=== PATIENT | female | born 1980 | race Caucasian/White ===

== ENCOUNTER 2024-10-21 13:21 | Outpatient (AMB) | payer OTHER, SELFPAY ==
--- NOTE | 2024-10-21 13:42 | A.OFFVIS_ITS ---
Intake Visit Reasons: ENP: Migraines Allergies acetaminophen (From Percocet) Allergy (Unknown, Verified 10/21/24 13:57) Unknown oxycodone (From Percocet) Allergy (Unknown, Verified 10/21/24 13:57) Unknown Medication List - Last Reconciled 10/21/24 by Alie Najera CNP cetirizine (Zyrtec) 10 mg PO DAILY norethindrone-e.estradiol-iron 1.5 mg-30 mcg (21)/75 mg (7) ([place] 1.5/30 (28)) 1 tab PO DAILY ubrogepant (Ubrelvy) 100 mg PO DAILY PRN verapamil 80 mg PO TID HPI Comments Details: 44-year-old woman with migraines since childhood that increased during high school years. She recently moved to the area with her partner and two children from [place]. She was treated for migraines in [place] by a neurologist, and was here to continue neurological care. Migraines were typically characterized by an intense, stabbing-type pain behind either eye, and could be associated with photophobia and occasional nausea. Migraines were worse around periods, and she was taking continuous control, which has helped. Other triggers included sleep deprivation, stress, and weather changes. Sleep was okay. Migraines were controlled with verapamil 80mg three times a day. She had few migraines a month that were relieved with Ubrelvy 100mg as needed. No medication side effects. In the past, she tried Maxalt as needed with side effects including tingling in the jaws and Fioricet which caused ?rebound headaches.? She also tried Aimovig and Nurtec as needed, which helped, but were stopped due to insurance reasons. Family history of migraines in her mother. ? [facility] Medical History (Updated 10/21/24 @ 14:04 by Alie Najera CNP) Depression Asthma Chronic migraine without aura Migraine Family History (Updated 10/21/24 @ 13:46 by Alie Najera CNP) Mother Migraine Maternal Grandfather Migraine Paternal Grandfather Alzheimer dementia Review of Systems Const Denies chills, Denies daytime sleepiness, Denies difficulty sleeping, Denies fatigue, Denies fever(s), Denies frequent falls, Reports headache(s), Denies increased appetite, Denies poor appetite, Denies snoring, Denies weakness, Denies weight gain and Denies weight loss Eyes Denies blurry vision, Denies diplopia and Denies loss of vision ENT Denies vertigo, Denies dizziness, Denies dry mouth, Denies otalgia, Reports headache(s), Denies hearing loss, Denies epistaxis, Denies nasal congestion, Denies neck pain, Denies tinnitus, Denies sinus pain and Denies sore throat Card Denies chest pain at rest, Denies chest pain with activity, Denies syncope, Denies leg edema, Denies palpitations, Denies dyspnea and Denies dyspnea on exertion Resp Denies cough, Denies dyspnea, Denies dyspnea on exertion and Denies snoring GI Denies abdominal pain, Denies constipation, Denies heartburn, Denies diarrhea, Denies nausea and Denies vomiting Denies urinary frequency, Denies nipple discharge, Denies urinary incontinence and Denies urinary urgency Musc Denies abnormal gait, Denies back pain, Denies myalgias, Denies arthralgias, Denies neck pain, Denies numbness, Denies stiffness and Denies tingling Skin/Breast Denies breast mass, Denies nipple discharge and Denies rash Neuro Denies abnormal gait, Denies vertigo, Denies dizziness, Denies syncope, Denies frequent falls, Reports headache(s), Denies lack of coordination, Denies loss of vision, Denies memory loss, Denies numbness, Denies Other visual disturbances, Denies restless legs, Denies seizure-like activity, Denies tingling, Denies paresthesias, Denies tremor(s) and Denies weakness Psych Denies anxiety, Denies depression, Denies memory loss, Denies visual hallucinations and Denies hallucinations Endo Denies cold intolerance, Denies fatigue, Denies heat intolerance, Denies polydipsia, Denies polyuria and Denies palpitations Physical Exam Const Other: General Appearance:? normal, in no acute distress. Head:? normocephalic, atraumatic. Eyes:? sclera non-icteric, conjunctiva clear. Ears:? auditory canal clear, tympanic membrane intact, clear. Nose:? no lesions. Oral Cavity:? gums normal, mucosa moist, no lesions. Throat:? clear. Neck/Thyroid:? no cervical lymphadenopathy. Skin:? no rashes, no significant birthmarks. Heart:? S1, S2 normal, no murmurs. Lungs:? clear anteriorly and posteriorly. Chest:? no gross rib deformity, clear to auscultation. Extremities:? no edema. Psych:? alert, oriented, cognitive function intact, cooperative with exam. Neuro Other: Mental Status:?Normal attention, orientation, memory and affect.? Cranial Nerves:?Pupils are equal, round and reactive to light. External occular muscles are intact. Visual pacheco are full. Face is symmetrical. Facial sensations are normal. Tongue is midline. Palate elevates symmetrically. Shoulder shrugging is normal. Hearing to bedside conversation is normal. Motor Examination:?Normal muscle tone, bulk and strength,?Deep tendon reflexes are 2+,?Plantars are flexor.? Sensory Exam:?....? Coordination:?No ataxia,?no titubation.? Gait Exam: Within normal limits. Cerebellar Signs:?Adclnt-[id number] and qxth-bc-cake is normal.? Extrapyramidal System:?No tremor, rigidity with normal facial expressions.? Pronator Drift:?Not present.? Involuntary Movements:?No tremors seen.? Speech:?Normal.? Assessment & Plan Assessment & Plan (1) Migraine without aura: Code(s): G43.009 - Migraine without aura, not intractable, without status migrainosus Category: Medical Qualifiers: Intractability: not intractable Status migrainosus presence: without status migrainosus Qualified Code(s): G43.009 - Migraine without aura, not intractable, without status migrainosus Plan: Continue verapamil 80mg 1 tablet three times a day. Continue Ubrelvy 100mg 1 tablet as needed for migraine #10 for 30 days. Plan Exam, findings, and plan reviewed with Dr. Garrett. Medications: New verapamil 80 mg PO TID 270 tabs 1RF 90 days ubrogepant (Ubrelvy) 100 mg PO DAILY PRN 10 tabs 5RF migraine headache 30 days Coding Level of Care Code New Pt Level 4 (00168) Diagnoses Migraine without aura and without status migrainosus, not intractable G43.009 Intractability: not intractable Status migrainosus presence: without status migrainosus
== END 2024-10-21 14:14 | disposition home or self-care (01) ==
LOC: HO.HSM 13:22
PROVIDERS: Visit Provider Registered Nurse
DX: G43.009 Migraine without aura, not intractable, without status migrainosus (principal)
CPT/HCPCS: 99204